=== PATIENT | female | born 1995 | race Caucasian/White ===

== ENCOUNTER → 2017-03-02 | Outpatient (CLI) | payer MEDICAID ==
[~2017-03-02] MED LIST: ACET-2267 PO; ACET1TAB43 PO; BIRTH CONTROL PILLS; DOCU100C37 PO; FERR-74 PO; IBUP-1773 PO; PNV91TAB3 PO; SERT50TA2 PO
--- NOTE | 2017-03-02 12:52 | Diagnostic Imaging Report ---
INDICATION: survey. TECHNIQUE: Multiple real-time grayscale images were obtained over the gravid uterus. COMPARISON: None during this . FINDINGS: There is a single intrauterine . heart rate is 133 beats per minute. The placenta is anterior. No placenta previa. The cervix appears closed and is 4.9 cm in length. Adequate amniotic fluid is seen. The maternal adnexa are obscured by the gravid uterus. The bladder, the kidneys, the stomach, and the lateral ventricles appear unremarkable. The cord insertion, three-vessel cord, four-chamber view, and the spine are not well seen due to position. Biometrical measurements are as follows: Biparietal 4.9 cm, age 20 weeks 6 days. Head circumference 19.81 cm, age 22 weeks 0 days. Abdominal circumference 16.46 cm, age 21 weeks 4 days. Femur length 3.72 cm, age 21 weeks 6 days. Sonographic estimate age: 21 weeks 4 days. Sonographic estimated date of delivery: 07/09/2017. Estimated Weight: 441 gm (+/- 64 gm). LMP percentile: 65%. heart rate: 133 beats per minute. number: 1 of 1. IMPRESSION: The cord insertion, three-vessel cord, the spine, and four-chamber view are not well evaluated due to position. Followup study within two weeks is suggested to reevaluate. Dictated by: Dictated on workstation # [id number]
== END ==
LOC: RAD 10:19
PROVIDERS: ATTEND Obstetrics & Gynecology
DX: Z34.92 Encounter for supervision of normal pregnancy, unspecified, second trimester (principal); Z3A.21 21 weeks gestation of pregnancy
CPT/HCPCS: 76805

== ENCOUNTER 2017-03-10 11:17 | Outpatient (CLI) | payer MEDICAID ==
[~2017-03-10] VITALS: Ht 162.6 cm; Wt 113.9 kg
[2017-03-10] MEDS ORDERED: FLUO10CA29 PO (11:55)
--- NOTE | 2017-03-11 12:11 | Physician Query-Final Dx ---
KAREN WETZEL 03/11/17 1211: Clinic Account Progress/Dx Physician Query: Please give diagnosis Date of Service Mar 10, 2017 at 11:17 LISSETH CALL MD 03/11/17 1724: Clinic Account Progress/Dx DIAGNOSIS: Diagnosis threatened labor KAREN WETZEL Mar 11, 2017 12:11 LISSETH CALL MD Mar 11, 2017 17:24
== END 2017-03-10 12:10 | disposition home or self-care (01) ==
LOC: WSo 11:17 → LDRP 11:18 → WSo 12:10
PROVIDERS: ATTEND Obstetrics & Gynecology
DX: O47.02 False labor before 37 completed weeks of gestation, second trimester (principal); Z3A.22 22 weeks gestation of pregnancy
CPT/HCPCS: 99212

== ENCOUNTER → 2017-04-26 | Outpatient (CLI) | payer MEDICAID ==
[~2017-04-26] MED LIST changes: -FERR-74 PO; +FERR325T18 PO; +FLUO10CA29 PO
--- NOTE | 2017-04-26 20:16 | Diagnostic Imaging Report ---
INDICATION: Anatomical survey. FINDINGS: The jackman gestation is in cephalic position. The placenta is anterior with no abruption or previa. Regular heart rate of 143 beats per minute noted. The three-vessel cord, the spine and the four-chamber heart appeared unremarkable, previously not adequately visualized. The cord insertion however can still not be clearly identified owing to positioning. IMPRESSION: Nonidentification of the cords insertion on a positional basis. The additional anatomical structures previously suboptimally visualized are shown to be normal at today's exam Dictated by: Dictated on workstation # [id number]
== END ==
LOC: RAD 12:57
PROVIDERS: ATTEND Obstetrics & Gynecology
DX: Z36.2 Encounter for other antenatal screening follow-up (principal); Z3A.20 20 weeks gestation of pregnancy
CPT/HCPCS: 76816

== ENCOUNTER → 2017-05-11 | Outpatient (CLI) | payer MEDICAID ==
--- NOTE | 2017-05-11 14:54 | Diagnostic Imaging Report ---
INDICATION: Followup cord insertion. TECHNIQUE: Multiple real-time grayscale images were obtained over the gravid uterus. COMPARISON: 04/26/2017. FINDINGS: There is a single live fetus in a cephalic presentation. Placenta is anterior. The cardiac activity is measured at 155 beats per minute. The amniotic fluid volume appears normal. Cord insertion is unremarkable on today's study. IMPRESSION: Limited OB ultrasound demonstrating unremarkable cord insertion. No complicating features are identified. Dictated by: Dictated on workstation # [id number]
--- NOTE | 2017-05-11 15:36 | Diagnostic Imaging Report ---
PROCEDURE: US Gallbladder. TECHNIQUE: Multiple real-time grayscale images were obtained over the right upper quadrant in various projections. INDICATION: Right upper quadrant pain. Patient is 31 weeks . FINDINGS: The liver is mildly enlarged at 19 cm. No discrete liver mass is identified. The portal vein is patent and demonstrates normal direction of flow. The gallbladder is without stones or sludge. No wall thickening or pericholecystic fluid is detected. There is no biliary ductal dilatation. The right kidney is unremarkable. No hydronephrosis or calculi are detected. There is no ascites. IMPRESSION: Mild hepatomegaly. Study is otherwise unremarkable. There is no evidence of cholelithiasis or acute cholecystitis. Dictated by: Dictated on workstation # [id number]
== END ==
LOC: RAD 13:19
PROVIDERS: ATTEND Obstetrics & Gynecology
DX: O99.89 Other specified diseases and conditions complicating pregnancy, childbirth and the puerperium (principal); Z3A.31 31 weeks gestation of pregnancy; R16.0 Hepatomegaly, not elsewhere classified
CPT/HCPCS: 76705; 76816

== ENCOUNTER 2017-06-17 12:50 | Inpatient (IN) | payer MEDICAID ==
[~2017-06-17] VITALS: Ht 165.1 cm; Wt 113.4 kg
[2017-06-17] VITALS (51 sets, daily range): BP systolic 93–168; BP diastolic 52–113
[~2017-06-17 12:50] MED LIST changes: -ACET-77 PO; -AMLO5TAB4 PO
[2017-06-17] MEDS ORDERED: ceFAZolin 2 GM IV Premixed 50 ML IV SCH ×2 (13:13→19:15)
[2017-06-17] MEDS ORDERED: MINERAL OIL CONCENTRATE 99.9% 15 ML UDC TOP PRN (13:15)
[2017-06-17] MEDS ORDERED: OXYTOCIN/NORMAL SALINE 500 ML IV SCH ×2 (13:16→23:29)
[2017-06-17] MEDS: D5 LR IV SOLUTION 1,000 ML IV SCH ×2 (14:00→22:21)
[2017-06-17] MEDS: CATHETER FLUSH 10 ML SYR IV SCH (15:06)
[2017-06-17] MEDS ORDERED: LACTATED RINGERS 1,000 ML IV ONE (16:44)
[2017-06-17] MEDS ORDERED: SUFENTA 0.6MCG/ML BUPIVA 0.125 100 ML ONE (17:17)
[2017-06-17] MEDS ORDERED: fentaNYL INJECTION 100 MCG/2 ML AMP ONE ×2 (17:51→22:33)
[2017-06-17] MEDS ORDERED: BUPIVACAINE 0.25% 30 ML (SENSORCAINE) VIAL ONE ×2 (17:51→21:37)
[2017-06-17] MEDS ORDERED: LIDOCAINE PF 2% 5 ML (XYLOCAINE) VIAL ONE (17:51)
[2017-06-17] MEDS ORDERED: ceFAZolin 2 GM IV Premixed 50 ML ONE (19:28)
[2017-06-17] MEDS ORDERED: RT-ALBUTEROL SULF 2.5 MG/3 ML PRE-MIX VIAL INH PRN (20:15)
[2017-06-17] MEDS ORDERED: TETANUS,DIPTH,PERTUSS P/F (BOOSTRIX) 0.5 ML VIAL IM ONE (23:30)
[2017-06-17] MEDS ORDERED: BENZOCAINE/MENTHOL (DERMOPLAST) 56 ML CAN TP PRN (23:30)
[2017-06-17] MEDS ORDERED: WITCH HAZEL(TUCKS) 40 EA JAR TOP PRN (23:30)
[2017-06-17] MEDS ORDERED: MEASLES,MUMPS,RUBELLA 1 EA INJ SQ ONE (23:30)
--- NOTE | 2017-06-17 23:40 | OB Labor & Delivery Record ---
Vag Delivery Note Vag Delivery Note Date of Delivery: 06/17/17 Preoperative Diagnosis: Amanda Mcmillan is a 21 /Para , Gestational Age 36 4/7 weeks, with oligohydramnios, UTI, preeclampsia, abnormal glucose testing Postoperative Diagnosis: Same Surgeon: GILBERT LUNDBERG Anesthesia: epidural Delivery Type: vaginal Findings: Viable female infant, apgars , weight 6#5oz Lacerations: superficial anterior fornix abrasion, not repaired, Intact placenta with 3 vessel cord. nuchal cord x 3 delivered through, no body cord or shoulder dystocia Estimated Blood Loss: 250 ml Complications: None Condition: Stable Description of Procedure: The patient is a 21 /Para ,Gestational Age 36 4/7 weeks, with oligohydramnios, UTI, preeclampsia, abnormal glucose testing who presented for induction of labor. She was admitted and informed consent was obtained. Her labor course was remarkable for Ancef x 4 grams total due to UTI (culture pending, GBS unknown), oligohydramnios, preeclampsia, abnormal Glucola (did not get 3 hour due to non compliance). AROM and augmentation with Pitocin. Intrathecal placement of epidural caused hypoxia and required nebulizer treatment due to course breath sounds. She progressed to complete dilatation and began to push. She was then set up for delivery. The infant's head was delivered atraumatically in the PEMA position. The shoulders and remainder of the infant's body were then delivered without difficulty. There was a triple nuchal cord that was delivered through. Upon delivery, the head was held below the level of the perineum and the mouth and nares were bulb suctioned. The cord was doubly clamped and cut and the was handed off to the pediatric staff. An intact placenta with 3-vessel cord delivered via Lance and there was found to be minimal bleeding.~ Vigorous fundal massage was performed and the fundus was found to be firm. IV oxytocin was given. Examination of the vagina and perineum revealed no laceration. Following the delivery, sponge, instrument and needle counts were correct. Mom and baby were both in stable condition in the labor suite. Vitals - Labs Vital Signs - I&O Vital Signs Date Time Temp Pulse Resp B/P (MAP) Pulse Ox O2 Delivery O2 Flow Rate FiO2 06/17/17 22:15 84 18 136/71 (92) 97 Room Air 06/17/17 22:00 106 18 117/57 (77) 97 Room Air 06/17/17 21:45 98.8 75 18 116/59 (78) 97 Room Air 06/17/17 21:30 93 18 144/67 (92) 95 Room Air 06/17/17 21:15 78 18 150/67 (94) 95 Room Air 06/17/17 21:00 78 18 160/70 (100) 100 Room Air 06/17/17 20:51 Non Rebreather 10.00 06/17/17 20:45 84 18 145/74 (97) 100 Non Rebreather 10.00 06/17/17 20:30 96 18 118/60 (79) 100 Non Rebreather 10.00 06/17/17 20:15 87 18 121/59 (79) 99 Non Rebreather 10.00 06/17/17 20:14 100 Room Air 06/17/17 20:02 88 100 21 06/17/17 20:00 75 18 134/64 (87) 100 Non Rebreather 10.00 06/17/17 19:45 85 18 119/58 (78) 100 Non Rebreather 10.00 06/17/17 19:30 97.4 99 18 88 Room Air 06/17/17 19:15 99 18 110/52 (71) 99 Room Air 06/17/17 19:00 98 18 93/52 (66) 98 Room Air 06/17/17 18:45 73 18 106/55 (72) 93 Room Air 06/17/17 18:40 87 18 122/60 (80) 97 Room Air 06/17/17 18:35 93 18 132/66 (88) 97 Room Air 06/17/17 18:30 96 18 132/66 (88) 96 Room Air 06/17/17 18:25 85 18 130/66 (87) 99 Room Air 06/17/17 18:18 86 18 144/83 (103) 96 Room Air 06/17/17 18:13 100 18 159/88 (111) 98 Room Air 06/17/17 18:10 95 18 154/85 (108) 98 Room Air 06/17/17 18:07 85 18 152/76 (101) 99 Room Air 06/17/17 18:04 97 18 152/73 (99) 97 Room Air 06/17/17 18:02 86 18 150/68 (95) 97 Room Air 06/17/17 17:55 81 18 145/78 (100) Room Air 06/17/17 17:40 71 18 127/61 (83) Room Air 06/17/17 17:25 76 18 138/75 (96) Room Air 06/17/17 17:10 90 18 140/80 (100) Room Air 06/17/17 16:55 82 18 136/81 (99) Room Air 06/17/17 16:40 83 18 144/74 (97) Room Air 06/17/17 16:25 86 18 145/83 (103) Room Air 06/17/17 16:10 85 18 142/82 (102) Room Air 06/17/17 15:55 87 18 135/79 (97) Room Air 06/17/17 15:40 88 18 135/79 (97) Room Air 06/17/17 15:25 88 18 130/69 (89) Room Air 06/17/17 15:10 91 18 139/78 (98) Room Air 06/17/17 14:55 86 18 141/83 (102) Room Air 06/17/17 14:40 86 18 149/82 (104) Room Air 06/17/17 14:25 86 18 149/82 (104) Room Air 06/17/17 14:10 96 18 142/83 (102) Room Air 06/17/17 13:18 98.1 91 18 144/72 (96) Room Air GILBERT LUNDBERG DO Jun 17, 2017 23:39
[2017-06-18 00:12] VITALS: BP 142/62
[2017-06-18] MEDS: IBUPROFEN 600 MG (MOTRIN) TAB PO SCH ×4 (00:15→17:20)
[2017-06-18 00:27] VITALS: BP 147/71
[2017-06-18] MEDS: ceFAZolin INJECTION 1,000 MG in NS (IVPB) 100 ML IV SCH ×2 (00:45→04:47)
[2017-06-18] MEDS: ACETAMINOPHEN 500 MG TAB (TYLENOL) PO PRN ×3 (04:22→21:14)
[2017-06-18 04:35] VITALS: BP 133/88
[2017-06-18 05:44] LABS: BASOPHILS % (AUTO) 0 % (0-10); EOSINOPHILS # (AUTO) 0.1 10^3/uL (0.0-0.3); EOSINOPHILS % (AUTO) 1 % (0-10); HEMATOCRIT 34 % (35-52); HEMOGLOBIN 11.5 G/DL (11.5-16.0); LYMPHOCYTES # (AUTO) 2.1 X 10^3 (1.0-4.0); LYMPHOCYTES % (AUTO) 20 % (12-44); MEAN CORPUSCULAR HEMOGLOBIN 29 PG (25-34); MEAN CORPUSCULAR HGB CONC 34 G/DL (32-36); MEAN CORPUSCULAR VOLUME 85 FL (80-99); MEAN PLATELET VOLUME 12.1 FL (7.4-10.4); MONOCYTES # (AUTO) 1.3 X 10^3 (0.0-1.0); MONOCYTES % (AUTO) 13 % (0-12); NEUTROPHILS % (AUTO) 67 % (42-75); PLATELET COUNT 159 10^3/uL (130-400); RED BLOOD COUNT 3.98 10^6/uL (4.35-5.85); RED CELL DISTRIBUTION WIDTH 13.6 % (10.0-14.5); WHITE BLOOD COUNT 10.5 10^3/uL (4.3-11.0)
--- NOTE | 2017-06-18 07:23 | Anesthesia-Regional Post-Op ---
Regional Patient Condition Mental Status: Alert, Oriented x3 Circulation: Same as Pre-Op Headache: Absent Sensation: Full Recovery Motor Block: Absent Post Op Complications Complications None Follow Up Care/Instructions Patient Instructions None needed. Anesthesia/Patient Condition Patient is doing well, no complaints, stable vital signs, no apparent adverse anesthesia problems. No complications reported per nursing. FORTINO BUTLER CRNA Jun 18, 2017 07:23
[2017-06-18 08:00] VITALS: BP 134/76
[2017-06-18] MEDS: DOCUSATE SODIUM 100 MG (COLACE) CAP PO SCH (08:14)
[2017-06-18] MEDS: FERROUS SULF 325 MG (IRON) TAB PO SCH (08:14)
[2017-06-18] MEDS: DOCUSATE CALCIUM 240 MG (SURFAK) CAP PO SCH (08:14)
[2017-06-18 12:00] VITALS: BP 127/84
[2017-06-18] MEDS: CATHETER FLUSH 10 ML SYR IV SCH ×2 (13:28→14:18)
[2017-06-18] MEDS: D5 LR IV SOLUTION 1,000 ML IV SCH (13:29)
[2017-06-18 16:00] VITALS: BP 130/82
--- NOTE | 2017-06-18 17:24 | Postpartum Progress Note ---
Note Note Day # [] Subjective: Patient is without complaints. Ambulating, voiding. Tolerating a regular diet without nausea or vomiting. Normal lochia. Pain is well controlled with oral pain medications. [] feeding. [] Objective: [] Physical Exam: General - Alert and oriented, no apparent distress Abdomen - Soft, appropriately tender to palpation, non-distended, fundus firm at umbilicus Extremities - no edema, negative Nils's bilaterally [] Assessment: [] post- day # [], status post [] vaginal delivery. Recovering well, hemodynamically stable [] Plan: Routine care. Encourage breast feeding. Encourage ambulation. Ferrous sulfate supplementation. Plan for discharge [] Vitals - Labs Vital Signs - I&O Vital Signs Date Time Temp Pulse Resp B/P (MAP) Pulse Ox O2 Delivery O2 Flow Rate FiO2 06/18/17 16:00 98.0 82 18 130/82 (98) 98 Room Air 06/18/17 12:00 98.2 88 18 127/84 (98) 97 Room Air 06/18/17 10:22 96 Room Air 06/18/17 08:43 Room Air 06/18/17 08:00 98.0 82 18 134/76 (95) 97 Room Air 06/18/17 04:35 97.0 72 18 133/88 (103) 97 Room Air 06/18/17 00:27 80 18 147/71 (96) Room Air 06/18/17 00:12 81 18 142/62 (88) Room Air 06/17/17 23:57 77 18 151/69 (96) Room Air 06/17/17 23:42 100 18 153/80 (104) Room Air 06/17/17 23:27 98.8 100 18 162/78 (106) Room Air 06/17/17 23:12 98.5 95 18 161/81 (107) Room Air 06/17/17 23:10 103 18 166/89 (114) Room Air 06/17/17 23:02 18 168/113 (131) 06/17/17 23:00 106 18 168/113 (131) 100 Non Rebreather 10.00 06/17/17 22:45 86 18 126/73 (90) 99 Non Rebreather 10.00 06/17/17 22:30 90 18 130/71 (90) 100 Room Air 06/17/17 22:15 84 18 136/71 (92) 97 Room Air 06/17/17 22:00 106 18 117/57 (77) 97 Room Air 06/17/17 21:45 98.8 75 18 116/59 (78) 97 Room Air 06/17/17 21:30 93 18 144/67 (92) 95 Room Air 06/17/17 21:15 78 18 150/67 (94) 95 Room Air 06/17/17 21:00 78 18 160/70 (100) 100 Room Air 06/17/17 20:51 Non Rebreather 10.00 06/17/17 20:45 84 18 145/74 (97) 100 Non Rebreather 10.00 06/17/17 20:30 96 18 118/60 (79) 100 Non Rebreather 10.00 06/17/17 20:15 87 18 121/59 (79) 99 Non Rebreather 10.00 06/17/17 20:14 100 Room Air 06/17/17 20:02 88 100 21 06/17/17 20:00 75 18 134/64 (87) 100 Non Rebreather 10.00 06/17/17 19:45 85 18 119/58 (78) 100 Non Rebreather 10.00 06/17/17 19:30 97.4 99 18 88 Room Air 06/17/17 19:15 99 18 110/52 (71) 99 Room Air 06/17/17 19:00 98 18 93/52 (66) 98 Room Air 06/17/17 18:45 73 18 106/55 (72) 93 Room Air 06/17/17 18:40 87 18 122/60 (80) 97 Room Air 06/17/17 18:35 93 18 132/66 (88) 97 Room Air 06/17/17 18:30 96 18 132/66 (88) 96 Room Air 06/17/17 18:25 85 18 130/66 (87) 99 Room Air 06/17/17 18:18 86 18 144/83 (103) 96 Room Air 06/17/17 18:13 100 18 159/88 (111) 98 Room Air 06/17/17 18:10 95 18 154/85 (108) 98 Room Air 06/17/17 18:07 85 18 152/76 (101) 99 Room Air 06/17/17 18:04 97 18 152/73 (99) 97 Room Air 06/17/17 18:02 86 18 150/68 (95) 97 Room Air 06/17/17 17:55 81 18 145/78 (100) Room Air 06/17/17 17:40 71 18 127/61 (83) Room Air 06/17/17 17:25 76 18 138/75 (96) Room Air I & O 06/18/17 07:00 Intake Total 700 ml Balance 700 ml Labs Laboratory Tests 06/18/17 01:09: Glucometer 129H 06/18/17 05:35: White Blood Count 10.5, Red Blood Count 3.98L, Hemoglobin 11.5, Hematocrit 34L, Mean Corpuscular Volume 85, Mean Corpuscular Hemoglobin 29, Mean Corpuscular Hemoglobin Concent 34, Red Cell Distribution Width 13.6, Platelet Count 159, Mean Platelet Volume 12.1H, Neutrophils (%) (Auto) 67, Lymphocytes (%) (Auto) 20 , Monocytes (%) (Auto) 13H, Eosinophils (%) (Auto) 1, Basophils (%) (Auto) 0, Neutrophils # (Auto) 7.0, Lymphocytes # (Auto) 2.1, Monocytes # (Auto) 1.3H, Eosinophils # (Auto) 0.1, Basophils # (Auto) 0.0 06/18/17 06:55: Glucometer 107 06/18/17 10:36: Glucometer 132H 06/18/17 16:42: Glucometer 85 GILBERT LUNDBERG DO Jun 18, 2017 17:24
[2017-06-19 00:10] VITALS: BP 134/87
[2017-06-19] MEDS: CATHETER FLUSH 10 ML SYR IV SCH (00:11)
[2017-06-19] MEDS: IBUPROFEN 600 MG (MOTRIN) TAB PO SCH ×4 (00:11→18:54)
[2017-06-19] MEDS: DOCUSATE SODIUM 100 MG (COLACE) CAP PO SCH ×2 (00:11→10:56)
[2017-06-19] MEDS: ACETAMINOPHEN 500 MG TAB (TYLENOL) PO PRN ×2 (04:43→14:25)
[2017-06-19 06:20] VITALS: BP 141/88
[2017-06-19 08:00] VITALS: BP 138/94
--- NOTE | 2017-06-19 08:33 | Postpartum Progress Note ---
Note Note Day # 2 s/p , preeclampsia, oligohydramnios Subjective: Patient is without complaints. Ambulating, voiding. Tolerating a regular diet without nausea or vomiting. Normal lochia. Pain is well controlled with oral pain medications. [] feeding. Objective: Laboratory Tests Test 06/18/17 10:36 06/18/17 16:42 06/18/17 21:11 06/19/17 06:21 Range/Units Glucometer 132 H 85 102 70 70-110 MG/DL 06/18/17 06/19/17 06/19/17 06/19/17 21:10 00:10 00:32 06:20 Temp 97.3 98.1 Pulse 60 63 Resp 18 18 B/P (MAP) 134/87 (103) 141/88 (105) Pulse Ox 98 95 O2 Delivery Room Air Room Air Room Air Room Air Vital Signs 06/17/17 06/17/17 06/19/17 20:02 23:00 06:20 Temp 98.1 Pulse 63 Resp 18 B/P (MAP) 141/88 (105) Pulse Ox 95 O2 Delivery Room Air O2 Flow Rate 10.00 FiO2 21 VS - Last 72 Hours, by Label 06/17/17 06/17/17 06/17/17 06/17/17 13:18 14:10 14:25 14:40 Temp 98.1 Pulse 91 96 86 86 Resp 18 18 18 18 B/P (MAP) 144/72 (96) 142/83 (102) 149/82 (104) 149/82 (104) O2 Delivery Room Air Room Air Room Air Room Air 06/17/17 06/17/17 06/17/17 06/17/17 14:55 15:10 15:25 15:40 Pulse 86 91 88 88 Resp 18 18 18 18 B/P (MAP) 141/83 (102) 139/78 (98) 130/69 (89) 135/79 (97) O2 Delivery Room Air Room Air Room Air Room Air 06/17/17 06/17/17 06/17/17 06/17/17 15:55 16:10 16:25 16:40 Pulse 87 85 86 83 Resp 18 18 18 18 B/P (MAP) 135/79 (97) 142/82 (102) 145/83 (103) 144/74 (97) O2 Delivery Room Air Room Air Room Air Room Air 06/17/17 06/17/17 06/17/17 06/17/17 16:55 17:10 17:25 17:40 Pulse 82 90 76 71 Resp 18 18 18 18 B/P (MAP) 136/81 (99) 140/80 (100) 138/75 (96) 127/61 (83) O2 Delivery Room Air Room Air Room Air Room Air 06/17/17 06/17/17 06/17/17 06/17/17 17:55 18:02 18:04 18:07 Pulse 81 86 97 85 Resp 18 18 18 18 B/P (MAP) 145/78 (100) 150/68 (95) 152/73 (99) 152/76 (101) Pulse Ox 97 97 99 O2 Delivery Room Air Room Air Room Air Room Air 06/17/17 06/17/17 06/17/17 06/17/17 18:10 18:13 18:18 18:25 Pulse 95 100 86 85 Resp 18 18 18 18 B/P (MAP) 154/85 (108) 159/88 (111) 144/83 (103) 130/66 (87) Pulse Ox 98 98 96 99 O2 Delivery Room Air Room Air Room Air Room Air 06/17/17 06/17/17 06/17/17 06/17/17 18:30 18:35 18:40 18:45 Pulse 96 93 87 73 Resp 18 18 18 18 B/P (MAP) 132/66 (88) 132/66 (88) 122/60 (80) 106/55 (72) Pulse Ox 96 97 97 93 O2 Delivery Room Air Room Air Room Air Room Air 06/17/17 06/17/17 06/17/17 06/17/17 19:00 19:15 19:30 19:45 Temp 97.4 Pulse 98 99 99 85 Resp 18 18 18 18 B/P (MAP) 93/52 (66) 110/52 (71) 119/58 (78) Pulse Ox 98 99 88 100 O2 Delivery Room Air Room Air Room Air Non Rebreather O2 Flow Rate 10.00 06/17/17 06/17/17 06/17/17 06/17/17 20:00 20:02 20:14 20:15 Pulse 75 88 87 Resp 18 18 B/P (MAP) 134/64 (87) 121/59 (79) Pulse Ox 100 100 100 99 O2 Delivery Non Rebreather Room Air Non Rebreather O2 Flow Rate 10.00 10.00 FiO2 21 06/17/17 06/17/17 06/17/17 06/17/17 20:30 20:45 20:51 21:00 Pulse 96 84 78 Resp 18 18 18 B/P (MAP) 118/60 (79) 145/74 (97) 160/70 (100) Pulse Ox 100 100 100 O2 Delivery Non Rebreather Non Rebreather Non Rebreather Room Air O2 Flow Rate 10.00 10.00 10.00 06/17/17 06/17/17 06/17/17 06/17/17 21:15 21:30 21:45 22:00 Temp 98.8 Pulse 78 93 75 106 Resp 18 18 18 18 B/P (MAP) 150/67 (94) 144/67 (92) 116/59 (78) 117/57 (77) Pulse Ox 95 95 97 97 O2 Delivery Room Air Room Air Room Air Room Air 06/17/17 06/17/17 06/17/17 06/17/17 22:15 22:30 22:45 23:00 Pulse 84 90 86 106 Resp 18 18 18 18 B/P (MAP) 136/71 (92) 130/71 (90) 126/73 (90) 168/113 (131) Pulse Ox 97 100 99 100 O2 Delivery Room Air Room Air Non Rebreather Non Rebreather O2 Flow Rate 10.00 10.00 06/17/17 06/17/17 06/17/17 06/17/17 23:02 23:10 23:12 23:27 Temp 98.5 98.8 Pulse 103 95 100 Resp 18 18 18 18 B/P (MAP) 168/113 (131) 166/89 (114) 161/81 (107) 162/78 (106) O2 Delivery Room Air Room Air Room Air 06/17/17 06/17/17 06/18/17 06/18/17 23:42 23:57 00:12 00:27 Pulse 100 77 81 80 Resp 18 18 18 18 B/P (MAP) 153/80 (104) 151/69 (96) 142/62 (88) 147/71 (96) O2 Delivery Room Air Room Air Room Air Room Air 4/08/3006/18/17 06/18/17 06/18/17 04:35 08:00 08:43 10:22 Temp 97.0 98.0 Pulse 72 82 Resp 18 18 B/P (MAP) 133/88 (103) 134/76 (95) Pulse Ox 97 97 96 O2 Delivery Room Air Room Air Room Air Room Air 06/18/17 06/18/17 06/18/17 06/19/17 12:00 16:00 21:10 00:10 Temp 98.2 98.0 97.3 Pulse 88 82 60 Resp 18 18 18 B/P (MAP) 127/84 (98) 130/82 (98) 134/87 (103) Pulse Ox 97 98 98 O2 Delivery Room Air Room Air Room Air Room Air 06/19/17 06/19/17 00:32 06:20 Temp 98.1 Pulse 63 Resp 18 B/P (MAP) 141/88 (105) Pulse Ox 95 O2 Delivery Room Air Room Air Physical Exam: General - Alert and oriented, no apparent distress Abdomen - Soft, appropriately tender to palpation, non-distended, fundus firm at umbilicus Extremities - no edema, negative Nils's bilaterally [] Assessment: [] post- day # [], status post [] vaginal delivery. Recovering well, hemodynamically stable [] Plan: Routine care. Encourage breast feeding. Encourage ambulation. Ferrous sulfate supplementation. Plan for discharge [] Vitals - Labs Vital Signs - I&O Vital Signs Date Time Temp Pulse Resp B/P (MAP) Pulse Ox O2 Delivery O2 Flow Rate FiO2 06/19/17 06:20 98.1 63 18 141/88 (105) 95 Room Air 06/19/17 00:32 Room Air 06/19/17 00:10 97.3 60 18 134/87 (103) 98 Room Air 06/18/17 21:10 Room Air 06/18/17 16:00 98.0 82 18 130/82 (98) 98 Room Air 06/18/17 12:00 98.2 88 18 127/84 (98) 97 Room Air 06/18/17 10:22 96 Room Air 06/18/17 08:43 Room Air Labs Laboratory Tests 06/18/17 10:36: Glucometer 132H 06/18/17 16:42: Glucometer 85 06/18/17 21:11: Glucometer 102 06/19/17 06:21: Glucometer 70 GILBERT LUNDBERG DO Jun 19, 2017 08:33
[2017-06-19] MEDS ORDERED: ACET-77 PO (08:37)
[2017-06-19] MEDS ORDERED: IBUP-1773 PO (08:37)
--- NOTE | 2017-06-19 08:39 | Discharge Inst-Women's Service ---
Discharge Inst-Women's Serv Depart Medication/Instructions New, Converted or Re-Newed RX: RX on Chart Final Diagnosis preeclampsia oligohydramnios hyperglycemia/abnormal glucose testing in vaginal delivery Intrathecal epidural placement post /spinal headache Consults/Follow Up Additional Follow Up: Yes (1 week for BP check/call Wednesday to set this up; 6 weeks post exam) Activity Activity: Activity as Tolerated Driving Instructions: You May Drive NO SMOKING: NO SMOKING Nothing Inside Vagina: No Douching, No Boiling [place] Diet Discharge Diet: No Restrictions Symptoms to Report to : Swelling Increased, Bleeding Excessive, Pain Increased, Fever Over 101 Degrees F, Vaginal Bleeding Increase, Cramps in Feet or Legs, Vaginal Discharge Foul, Dizziness/Fainting, Nausea/Vomiting For Any Problems or Questions: Contact Your Physician GILBERT LUNDBERG DO Jun 19, 2017 08:39
[2017-06-19] MEDS: DOCUSATE CALCIUM 240 MG (SURFAK) CAP PO SCH (10:56)
[2017-06-19] MEDS: FERROUS SULF 325 MG (IRON) TAB PO SCH (10:56)
--- NOTE | 2017-06-19 10:57 | Anesthesia-Regional Post-Op ---
Regional Patient Condition Mental Status: Alert, Oriented x3 Circulation: Same as Pre-Op Headache: Absent Sensation: Full Recovery Motor Block: Absent Post Op Complications Complications None Follow Up Care/Instructions Patient Instructions None needed. Anesthesia/Patient Condition Patient is doing well, no complaints, stable vital signs, no apparent adverse anesthesia problems. No complications reported per nursing. Patient sleeping soundly in her bed, denies headache today and nursing staff denies complications, VSS. ELOISE NICOLAS YEAST PUMPER Jun 19, 2017 10:57
[2017-06-19 12:00] VITALS: BP 140/90
[2017-06-19 16:57] VITALS: BP 127/72
[2017-06-20] MEDS: IBUPROFEN 600 MG (MOTRIN) TAB PO SCH ×3 (00:31→12:29)
[2017-06-20] MEDS: DOCUSATE SODIUM 100 MG (COLACE) CAP PO SCH ×2 (00:32→09:36)
[2017-06-20 00:34] VITALS: BP 143/90
[2017-06-20 06:39] VITALS: BP 139/83
[2017-06-20] MEDS: FERROUS SULF 325 MG (IRON) TAB PO SCH (09:36)
[2017-06-20 12:28] VITALS: BP 145/86
--- NOTE | 2017-06-20 12:49 | Postpartum Progress Note ---
Note Note Day # [] Subjective: Patient is without complaints. Ambulating, voiding. Tolerating a regular diet without nausea or vomiting. Normal lochia. Pain is well controlled with oral pain medications. [] feeding. [] Objective: Laboratory Tests Test 06/19/17 15:36 06/19/17 21:34 06/20/17 06:35 06/20/17 09:34 Range/Units Glucometer 109 101 70 78 70-110 MG/DL 06/20/17 06/20/17 06:39 12:28 Temp 97.7 97.6 Pulse 66 75 Resp 18 18 B/P (MAP) 139/83 (101) 145/86 (105) Pulse Ox 96 98 O2 Delivery Room Air Room Air Physical Exam: General - Alert and oriented, no apparent distress Abdomen - Soft, appropriately tender to palpation, non-distended, fundus firm at umbilicus Extremities - no edema, negative Nils's bilaterally [] Assessment: [] post- day # [], status post [] vaginal delivery. Recovering well, hemodynamically stable [] Plan: Routine care. Encourage breast feeding. Encourage ambulation. Ferrous sulfate supplementation. Plan for discharge [] Vitals - Labs Vital Signs - I&O Vital Signs Date Time Temp Pulse Resp B/P (MAP) Pulse Ox O2 Delivery O2 Flow Rate FiO2 06/20/17 12:28 97.6 75 18 145/86 (105) 98 Room Air 06/20/17 06:39 97.7 66 18 139/83 (101) 96 Room Air 06/20/17 00:34 97.8 64 18 143/90 (107) 97 Room Air 06/19/17 16:57 98.0 64 18 127/72 (90) 97 Room Air 06/19/17 15:46 Room Air Labs Laboratory Tests 06/19/17 15:36: Glucometer 109 06/19/17 21:34: Glucometer 101 06/20/17 06:35: Glucometer 70 06/20/17 09:34: Glucometer 78 GILBERT LUNDBEGR DO Jun 20, 2017 12:49
[2017-06-20] MEDS ORDERED: AMLO5TAB4 PO (12:52)
[2017-06-20] MEDS ORDERED: amLODIPine 5 MG (NORVASC) TAB PO SCH (13:00)
[2017-06-20] MEDS ORDERED: TETANUS,DIPTH,PERTUSS P/F (BOOSTRIX) 0.5 ML VIAL IM ONE (13:20)
== END 2017-06-20 14:00 | disposition home or self-care (01) | DRG 774 ==
LOC: LDRP 12:50
PROVIDERS: ADMIT Obstetrics & Gynecology; ATTEND Obstetrics & Gynecology
PROC: 10E0XZZ Delivery of Products of Conception, External Approach (ICD-10-PCS; principal; 2017-06-17)
DX: O14.93 Unspecified pre-eclampsia, third trimester (principal); O41.03X0 Oligohydramnios, third trimester, not applicable or unspecified; O60.14X0 Preterm labor third trimester with preterm delivery third trimester, not applicable or unspecified; O23.43 Unspecified infection of urinary tract in pregnancy, third trimester; O99.810 Abnormal glucose complicating pregnancy; O69.81X0 Labor and delivery complicated by cord around neck, without compression, not applicable or unspecified; O00-O9A Pregnancy, childbirth and the puerperium; R09.02 Hypoxemia; O74.5 Spinal and epidural anesthesia-induced headache during labor and delivery; Z3A.36 36 weeks gestation of pregnancy; Z37.0 Single live birth; Z23 Encounter for immunization
CPT/HCPCS: 36415; 82962; 85025; 86850; 86900; 86901; 90715; 94640; 94760

== ENCOUNTER → 2017-06-17 | Outpatient (CLI) | payer MEDICAID ==
[~2017-06-17] MED LIST changes: +ACET-77 PO; +AMLO5TAB4 PO
== END ==
LOC: LABNPT 09:15
PROVIDERS: ATTEND Obstetrics & Gynecology
DX: O16.3 Unspecified maternal hypertension, third trimester (principal); O12.13 Gestational proteinuria, third trimester; R30.0 Dysuria
CPT/HCPCS: 82570; 84156